=== PATIENT | female | born 2000 | race American Indian/Alaskan Native ===

== ENCOUNTER 2019-02-18 20:12 | Emergency (ER) | payer SELFPAY ==
[2019-02-18 23:11] VITALS: BP 153/107
[2019-02-19] MEDS ORDERED: ACETAMINOPHEN 500 MG TAB PO ONE (00:23)
[2019-02-19] MEDS ORDERED: predniSONE 20 MG TAB PO ONE (00:23)
[2019-02-19] MEDS ORDERED: IBUPROFEN 600 MG TAB PO ONE (00:23)
[2019-02-19] MEDS ORDERED: AMOXICILLIN/K CLAV 875/125MG TAB PO ONE (00:23)
--- NOTE | 2019-02-19 01:46 | Emergency Department Report ---
ED General Adult HPI - General Chief complaint: Dental/Oral Stated complaint: FACIAL PAIN Source: patient Mode of arrival: Ambulatory Limitations: No Limitations - History of Present Illness MD Complaint: sore throat; left ear pain -: Sudden, week(s) (1) Location: mouth Radiation: non-radiation Severity scale (0 -10): 10 Quality: aching, sharp Consistency: constant Improves with: none Worsens with: none Associated Symptoms: denies other symptoms, cough. denies: confusion, chest pain, diaphoresis, fever/chills, headaches, loss of appetite, malaise, na usea/vomiting, rash, seizure, shortness of breath, syncope Treatments Prior to Arrival: none - Related Data Previous Rx's Medication Instructions Recorded Last Taken Type Acetaminophen/Codeine [Tylenol 1 tab PO Q6H PRN #12 tab 02/19/19 Unknown Rx /Codeine # 3 tab] Amoxicillin/Potassium Clav 1 each PO Q12H #20 tablet 02/19/19 Unknown Rx [Augmentin 875-125 Tablet] Ibuprofen [Motrin] 600 mg PO Q8H PRN #24 tablet 02/19/19 Unknown Rx methylPREDNISolone [Medrol 4MG 4 mg PO DAILY #21 tab.ds.pk 02/19/19 Unknown Rx DOSEPAK (21 tabs)] ED Review of Systems ROS: Stated complaint: FACIAL PAIN Other details as noted in HPI Constitutional: denies: chills, fever Eyes: denies: eye pain, eye discharge, vision change ENT: ear pain (LEFT), throat pain, congestion Respiratory: denies: cough, shortness of breath, wheezing Cardiovascular: denies: chest pain, palpitations Endocrine: no symptoms reported Gastrointestinal: denies: abdominal pain, nausea, diarrhea Genitourinary: denies: urgency, dysuria, discharge Musculoskeletal: denies: back pain, joint swelling, arthralgia Skin: denies: rash, lesions Neurological: denies: headache, weakness, paresthesias Psychiatric: denies: anxiety, depression Hematological/Lymphatic: denies: easy bleeding, easy bruising ED Past Medical Hx - Medications Home Medications: Home Medications Medication Instructions Recorded Confirmed Last Taken Type Acetaminophen/Codeine [Tylenol 1 tab PO Q6H PRN #12 tab 02/19/19 Unknown Rx /Codeine # 3 tab] Amoxicillin/Potassium Clav 1 each PO Q12H #20 tablet 02/19/19 Unknown Rx [Augmentin 875-125 Tablet] Ibuprofen [Motrin] 600 mg PO Q8H PRN #24 tablet 02/19/19 Unknown Rx methylPREDNISolone [Medrol 4MG 4 mg PO DAILY #21 tab.ds.pk 02/19/19 Unknown Rx DOSEPAK (21 tabs)] ED Physical Exam - General Limitations: No Limitations General appearance: alert, in no apparent distress - Head Head exam: Present: atraumatic, normocephalic, normal inspection - Eye Eye exam: Present: normal appearance, PERRL, EOMI Pupils: Present: normal accommodation - ENT ENT exam: Present: mucous membranes moist, other (erythematous left tympanic membrane, erythematous oropharynx and left tonsils) - Neck Neck exam: Present: normal inspection, full ROM, lymphadenopathy. Absent: tenderness - Respiratory Respiratory exam: Present: normal lung sounds bilaterally. Absent: respiratory distress, wheezes, rales, chest wall tenderness, accessory muscle use, decreased breath sounds - Cardiovascular Cardiovascular Exam: Present: regular rate, normal rhythm, normal heart sounds. Absent: systolic murmur, diastolic murmur, rubs, gallop - GI/Abdominal GI/Abdominal exam: Present: soft, normal bowel sounds. Absent: tenderness, hyperactive bowel sounds - Extremities Exam Extremities exam: Present: normal inspection, full ROM, normal capillary refill - Back Exam Back exam: Present: normal inspection, full ROM - Neurological Exam Neurological exam: Present: alert, oriented X3, CN II-XII intact, normal gait, reflexes normal - Psychiatric Psychiatric exam: Present: normal affect, normal mood - Skin Skin exam: Present: warm, dry, intact, normal color. Absent: rash ED Course Vital Signs 02/18/19 21:05 Temperature 97.5 F L Pulse Rate 88 Respiratory 14 Rate Blood Pressure 153/107 O2 Sat by Pulse 100 Oximetry ED Medical Decision Making - Medical Decision Making This is a 19-year-old female who presented to the ED with acute sore throat, swollen tonsil, left hip pain and left anterior cervical lymphadenopathy for the last 1 week worse in the last 2 days. In the ED, patient is alert and oriented 3 and is not in distress. Patient was treated for pain in the ED and discharged home on antibiotics and pain medications. Patient is advised to follow-up with her primary care physician in 7-10 days for reevaluation. Patient was also advised to return to the ED immediately if symptoms get worse. - Differential Diagnosis Otitis media; URI, Bronchitis; Tonsilitis; Pharyngitis Critical care attestation.: If time is entered above; I have spent that time in minutes in the direct care of this critically ill patient, excluding procedure time. ED Disposition Clinical Impression: Acute upper respiratory infection Acute pharyngitis Qualifiers: Pharyngitis/tonsillitis etiology: other specified organisms Qualified Code(s): J02.8 - Acute pharyngitis due to other specified organisms Acute otitis media Qualifiers: Otitis media type: unspecified Qualified Code(s): H66.90 - Otitis media, unspecified, unspecified ear Disposition: TO HOME OR SELFCARE Is pt being admited?: No Does the pt Need Aspirin: No Condition: Stable Instructions: Pharyngitis (ED), Upper Respiratory Infection (ED), Otitis Media (ED) Additional Instructions: Take medication with food, drink plenty of fluids and follow-up with the primary care physician in 7-10 days for reevaluation. Return to the ED immediately if symptoms get worse. Prescriptions: Amoxicillin/Potassium Clav [Augmentin 875-125 Tablet] 1 each PO Q12H #20 tablet methylPREDNISolone [Medrol 4MG DOSEPAK (21 tabs)] 4 mg PO DAILY #21 tab.ds.pk Ibuprofen [Motrin] 600 mg PO Q8H PRN #24 tablet PRN Reason: Pain Acetaminophen/Codeine [Tylenol /Codeine # 3 tab] 1 tab PO Q6H PRN #12 tab PRN Reason: Pain , Severe (7-10) Referrals: [facility] [Outside] - 7-10 days Time of Disposition: 01:43 Print Language: YAKUT
== END 2019-02-19 01:50 | disposition home or self-care (01) ==
LOC: ED 20:12
DX: H66.92 Otitis media, unspecified, left ear (principal); J02.9 Acute pharyngitis, unspecified; J06.9 Acute upper respiratory infection, unspecified
CPT/HCPCS: 99282; J7512

== ENCOUNTER 2020-03-10 12:05 | Emergency (ER) | payer SELFPAY ==
[2020-03-10 12:18] VITALS: BP 139/95
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
--- NOTE | 2020-03-10 12:55 | XRay Report ---
CHEST 2 VIEWS INDICATION / CLINICAL INFORMATION: pain mid sternum. COMPARISON: None available. FINDINGS: SUPPORT DEVICES: None. HEART / MEDIASTINUM: No significant abnormality. LUNGS / PLEURA: No significant pulmonary or pleural abnormality. No pneumothorax. ADDITIONAL FINDINGS: No significant additional findings. IMPRESSION: No significant abnormality Signer Name: John Benton MD FACR Signed: 03/10/2020 12:50 PM Workstation Name: [id number]
== END 2020-03-10 13:15 | disposition home or self-care (01) ==
LOC: ED 12:05
DX: S20.211A Contusion of right front wall of thorax, initial encounter (principal); F17.200 Nicotine dependence, unspecified, uncomplicated; Y04.2XXA Assault by strike against or bumped into by another person, initial encounter; Y93.89 Activity, other specified; Y92.89 Other specified places as the place of occurrence of the external cause; Y99.8 Other external cause status
CPT/HCPCS: 71046; 99283

== ENCOUNTER 2021-02-02 10:03 | Emergency (ER) | payer SELFPAY ==
[2021-02-02] MEDS ORDERED: ALPRAZolam 0.5 MG TAB PO ONE (12:37)
[2021-02-02] MEDS ORDERED: ACETAMINOPHEN 500 MG TAB PO ONE (12:37)
[2021-02-02] MEDS ORDERED: IBUPROFEN 400 MG TAB PO ONE (12:37)
--- NOTE | 2021-02-02 12:40 | Emergency Department Report ---
ED General Adult HPI - General Chief complaint: Chest Pain Stated complaint: Chest wall pain Time Seen by Provider: 02/02/21 12:08 Source: patient, RN notes reviewed, old records reviewed Mode of arrival: Ambulatory Limitations: No Limitations - History of Present Illness Initial comments: The patient is a 20-year-old female. She is not known to myself previously. She reports that she is not . She presents to the ER today with a complaint of chest wall pain, and anxiety. Her symptoms have been intermittent over the past few weeks. The patient is not COVID-19 vaccinated, and copiously consumes marijuana to cope with her anxiety. She denies travel, surgery, immobilization, DVT/PE risk factors, denies personal/family history of CAD, DC, DVT and PE. The patient has not followed up with an outpatient physician, and in addition, the patient has not attempted outpatient therapy. During my initial evaluation, the patient tells me that she cannot talk to me, because she needs to pray. When the patient is done with her prior, she then tells me that she can participate in her history and physical. -: Gradual, week(s) Location: chest Radiation: non-radiation Quality: aching Consistency: intermittent Worsens with: other (Movement and palpation) - Related Data Previous Rx's Medication Instructions Recorded Last Taken Type Acetaminophen [Non-Aspirin Extra 500 mg PO Q6HR PRN #30 tablet 02/02/21 Unknown Rx Strength] Ibuprofen [Motrin] 400 mg PO Q8H PRN #30 tablet 02/02/21 Unknown Rx Allergies Allergy/AdvReac Type Severity Reaction Status Date / Time melon AdvReac Itching Verified 02/02/21 11:24 watermelon AdvReac Itching Verified 02/02/21 11:24 ED Review of Systems ROS: Stated complaint: chest pain Other details as noted in HPI Constitutional: denies: fever Respiratory: denies: shortness of breath Cardiovascular: chest pain (Chest wall pain) Gastrointestinal: denies: abdominal pain Neurological: denies: weakness Psychiatric: anxiety ED Past Medical Hx - Past Medical History Hx Congestive Heart Failure: No Hx Arthritis: No Hx Asthma: No Hx COPD: No Additional medical history: anxiety - Social History Smoking Status: Current Every Day Smoker Substance Use Type: None - Medications Home Medications: Home Medications Medication Instructions Recorded Confirmed Last Taken Type Acetaminophen [Non-Aspirin Extra 500 mg PO Q6HR PRN #30 tablet 02/02/21 Unknown Rx Strength] Ibuprofen [Motrin] 400 mg PO Q8H PRN #30 tablet 02/02/21 Unknown Rx ED Physical Exam - General Limitations: No Limitations, Other (Chaperoned by Daniel) General appearance: alert, anxious - Head Head exam: Present: atraumatic, normocephalic - Eye Eye exam: Present: normal appearance, EOMI. Absent: nystagmus - ENT ENT exam: Present: normal exam, normal orophraynx, mucous membranes moist, normal external ear exam - Neck Neck exam: Present: normal inspection, full ROM. Absent: tenderness, meningismus - Respiratory Respiratory exam: Present: normal lung sounds bilaterally, chest wall tenderness. Absent: respiratory distress, wheezes, rales, rhonchi, stridor - Cardiovascular Cardiovascular Exam: Present: regular rate, normal rhythm, normal heart sounds. Absent: bradycardia, tachycardia, irregular rhythm, systolic murmur, diastolic murmur, rubs, gallop - GI/Abdominal GI/Abdominal exam: Present: soft. Absent: distended, tenderness, guarding, rebound, rigid, pulsatile mass - Extremities Exam Extremities exam: Present: normal inspection, full ROM, other (2+ pulses noted in the bilateral upper and lower extremities. There is no palpable cord. negative Homans sign. Muscular compartments are soft. The pelvis is stable.). Absent: pedal edema, calf tenderness - Back Exam Back exam: Present: normal inspection. Absent: tenderness, CVA tenderness (R), CVA tenderness (L), paraspinal tenderness, vertebral tenderness - Neurological Exam Neurological exam: Present: alert, oriented X3, normal gait, other (No facial droop. Tongue midline. Extraocular movements intact bilaterally. Facial sensation intact to light touch in V1, V2, V3 distribution bilaterally. 5 and a 5 strength in 4 extremities. Sensation intact to light touch in 4 extremities.). Absent: motor sensory deficit - Psychiatric Psychiatric exam: Present: anxious - Skin Skin exam: Present: warm, dry, intact, normal color. Absent: rash ED Course Vital Signs 02/02/21 02/02/21 11:19 13:01 Temperature 98.6 F 97.3 F L Pulse Rate 77 74 Respiratory 18 16 Rate Blood Pressure 137/104 150/81 [Right] O2 Sat by Pulse 100 100 Oximetry - Reevaluation(s) Reevaluation #1: 02/02/21 12:42 This patient reports that she is not , and reports that she has not delivered her given within the past 6 weeks. ED Medical Decision Making - Lab Data Vital Signs 02/02/21 11:19 Temperature 98.6 F Pulse Rate 77 Respiratory 18 Rate Blood Pressure 137/104 [Right] O2 Sat by Pulse 100 Oximetry - EKG Data -: EKG Interpreted by Tx EKG shows normal: sinus rhythm Rate: normal - EKG Data 02/02/21 12:39 The EKG is interpreted at 11: 31 Sinus rhythm, normal axis, normal P wave axis, QTC 461 ms. Minimal motion artifact. Not a STEMI. Unremarkable EKG. - Medical Decision Making Differential diagnosis, including but not limited to: Costochondritis, anxiety Assessment and plan: 20-year-old female, who is clinically sober, with a GCS of 15, who is not currently tachycardic, tachypneic or hypoxic, who denies DVT and pulmonary embolism risk factors, who is low risk by Wells criteria for pulmonary embolism, and PERC negative, with atypical nonexertional chest pain, and reproducible chest wall pain, present for weeks and months. While I am speaking to the patient, she is markedly anxious, but we are able to verbally de-escalate her. Reassurance provided. Tylenol and Motrin as needed pain. Lung sounds clear, saturating well on room air. Given young age, and robust medical health, I do not see indication for laboratory studies or x-ray of the chest/radiology studies. Incidentally, this patient is not COVID-19 vaccinated, and is a chronic marijuana consumer since age of 12. Have counseled this patient to discontinue marijuana consumption. Have also counseled the patient to consider outpatient COVID-19 vaccination. We also discussed nonmedical mental health interventions, such as therapy, talk space, etc. Critical care attestation.: If time is entered above; I have spent that time in minutes in the direct care of this critically ill patient, excluding procedure time. ED Disposition Clinical Impression: Chest wall pain, Marijuana use, COVID-19 vaccination not done Disposition: 01 HOME / SELF CARE / HOMELESS Is pt being admited?: No Does the pt Need Aspirin: No Condition: Stable Instructions: Cannabis Use Disorder, Managing Anxiety, Adult, Costochondritis Additional Instructions: We recommend that the patient discontinue marijuana consumption. We also recommend that the patient obtaining complete outpatient COVID-19 vaccination series. Patient most likely has costochondritis and anxiety, which are typically not dangerous or lethal. Take the prescribed pain medications as directed. First-line treatment for anxiety therapy would not involve medication, but outpatient therapy. We recommend that the patient follow-up with an outpatient primary care doctor, mental health specialist, or therapist to arrange outpatient follow-up for presumed anxiety. Please return to the emergency room right away with new pain, worsened pain, migration of pain, projectile vomiting, change in mental status, confusion, inability tolerate liquid feeds, new, worsened or different symptoms not present on the initial emergency room evaluation Patient may take the prescribed pain medications as needed and directed. Patient does not appear to have an emergent medical condition at this time which would preclude return to work. Prescriptions: Ibuprofen [Motrin] 400 mg PO Q8H PRN #30 tablet PRN Reason: Pain Acetaminophen [Non-Aspirin Extra Strength] 500 mg PO Q6HR PRN #30 tablet PRN Reason: Pain , Severe (7-10) Referrals: [facility] [Provider Group] - 3-5 Days [facility] [Outside] - 3-5 Days Forms: Work/School Release Form(ED)
[2021-02-02 13:04] VITALS: BP 150/81
--- NOTE | 2021-02-06 10:25 | Electrocardiograph Report ---
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
== END 2021-02-02 13:08 | disposition home or self-care (01) ==
LOC: ED 10:03
DX: R07.89 Other chest pain (principal); F12.10 Cannabis abuse, uncomplicated; F17.200 Nicotine dependence, unspecified, uncomplicated
CPT/HCPCS: 93005; 99282